=== PATIENT | female | born 1945 | race Caucasian/White ===

== ENCOUNTER → 2018-10-24 | Outpatient (CLI) | payer MEDICARE ==
--- NOTE | 2018-10-24 10:17 | PCVCIMAG ---
APPROVED REPORT Laterality: Bilateral Patient Location: Out-Patient Indications CVA/TIA: confusion,amnesia Doppler Spectral Velocity Analysis PSV / EDVPSV / EDV ECA (R) 66 / 19 cm/sECA (L) 76 / 22 cm/s dICA (R) 63 / 28 cm/sdICA (L) 101 / 51 cm/s Mallory (R) 82 / 32 cm/smICA (L) 66 / 31 cm/s pICA (R) 100 / 39 cm/spICA (L) 50 / 26 cm/s Bulb (R) 55 / 16 cm/sBulb (L) 60 / 25 cm/s dCCA (R) 72 / 25 cm/sdCCA (L) 52 / 21 cm/s mCCA (R) 74 / 29 cm/smCCA (L) 61 / 24 cm/s Vert (R) 22 / 8 cm/sVert (L) 50 / 19 cm/s ICA/CCA 1.39ICA/CCA 1.94 Basic Measurements Blood Pressure: Pulses: Right Left RightLeft Brachial(Sitting) 146/76ehIt543/86mmHgTemporal Real Time B-Mode Imaging Vert. (R)AntegradeVert. (L)Antegrade Findings The right carotid bulb has no significant plaque. The right proximal internal carotid artery shows no significant stenosis. The right common carotid artery shows no significant stenosis. The right external carotid artery shows no significant stenosis. The left carotid bulb has no significant plaque. The left proximal internal carotid artery shows no significant stenosis. The left common carotid artery shows no significant stenosis. The left external carotid artery shows no significant stenosis. Conclusion 1. No significant stenosis involving either carotid artery. 2. Antegrade vertebral flow
--- NOTE | 2018-10-24 10:24 | PCVCIMAG ---
APPROVED REPORT Study performed: 10/24/2018 09:18:39 EXAM: Comprehensive 2D, Doppler, and color-flow Echocardiogram Patient Location: Echo lab Room #: 2Status: routine BSA: 1.96 HR: 60 bpmBP: 142/86 mmHg Rhythm: NSR Other Information Study Quality: Adequate Indications CVA/TIA 2D Dimensions IVSd: 8.97 (7-11mm)LVOT Diam: 22.34 (18-24mm) LVDd: 53.12 mm PWd: 7.05 (7-11mm)Ascending Ao: 31.10 (22-36mm) LVDs: 34.63 (25-40mm) Left Atrium: 37.46 (27-40mm) Aortic Root: 27.39 mm LV Single Plane 4CH: 55.41 % LV Single Plane 2CH: 62.39 % Biplane EF: 60.1 % Volumes Left Atrial Volume (Systole) Single Plane 4CH: 69.95 mLSingle Plane 2CH: 59.84 mL Biplane LA Volume: 65.00 mLLA ESV Index: 33.00 mL/m2 Aortic Valve AoV Peak Alverto.: 1.10 m/s AO Peak Gr.: 4.83 mmHgLVOT Max P.31 mmHg LVOT Max V: 1.04 m/s NICHOLAS Vmax: 3.70 cm2 Mitral Valve E/A Ratio: 0.8 MV Decel. Time: 208.62 ms MV E Max Alverto.: 0.54 m/s MV A Alverto.: 0.70 m/s TDI E/Lateral E': 5.40E/Medial E': 6.00 Medial E' Alverto.: 0.09 m/s Lateral E' Alverto.: 0.10 m/s Pulmonary Valve PV Peak Alverto.: 0.84 m/sPV Peak Gr.: 2.85 mmHg Pulmonary Vein P Vein S: 0.55 m/sP Vein A: 0.31 m/s P Vein D: 0.38 m/sP Vein A Dur.: 96.9 msec P Vein S/D Ratio: 1.45 Tricuspid Valve TR Peak Alverto.: 2.19 m/s TR Peak Gr.: 19.18 mmHg TV Vmax: 0.49 m/sPA Pressure: 26.00 mmHg Left Ventricle The left ventricle is normal size. There is normal LV segmental wall motion. There is normal left ventricular wall thickness. There is no ventricular septal defect visualized. Left ventricular systolic function is normal. The left ventricular ejection fraction is within the normal range. LVEF is 60%. Mild diastolic dysfunction is present (impaired relaxation pattern). Right Ventricle The right ventricle is normal size. The right ventricular systolic function is normal. Atria The left atrium size is normal. The right atrium size is normal. Aortic Valve Aortic valve is trileaflet. The aortic valve is normal in structure and function. No aortic regurgitation is present. There is no aortic valvular stenosis. Mitral Valve The mitral valve is normal in structure. There is no mitral valve regurgitation noted. No evidence of mitral valve stenosis. Tricuspid Valve The tricuspid valve is normal in structure. Trace tricuspid regurgitation. No pulmonary hypertension. Pulmonic Valve The pulmonary valve is normal in structure. There is no pulmonic valvular regurgitation. Great Vessels The aortic root is normal in size. The ascending aorta is normal in size. Aortic arch is normal in caliber. IVC is normal in size and collapses >50% with inspiration. Pericardium There is no pericardial effusion. There is no pleural effusion. <Conclusion> Left ventricular systolic function is normal. There is normal LV segmental wall motion. LVEF is 60%. Mild diastolic dysfunction Aortic valve is trileaflet. No stenosis or insufficiency The mitral valve is normal in structure. No mitral valve regurgitation Pulmonary artery pressure could not be reliably ascertained. There is no pericardial effusion.
== END | disposition home or self-care (01) ==
LOC: PCVCIMAG 09:01
PROVIDERS: ATTEND Family Medicine
DX: G45.4 Transient global amnesia (principal); R93.1 Abnormal findings on diagnostic imaging of heart and coronary circulation; E78.5 Hyperlipidemia, unspecified; I50.31 Acute diastolic (congestive) heart failure; Z87.891 Personal history of nicotine dependence; Z79.82 Long term (current) use of aspirin
CPT/HCPCS: 93005; 93306; 93880; G0463